=== PATIENT | male | born 1955 | race Caucasian/White ===

== ENCOUNTER → 2016-11-18 | Outpatient (CLI) | payer BC ==
--- NOTE | ~2016-11-18 | CR63 ---
[facility] A Service of [facility] & [facility] RADIOLOGY TEXT RESULTS PATIENT: CARTER ANDERS LOCATION: [facility] : 55 UNIT #: [id number] AGE: [address]: Alejandro Mullins MD SEX: M ORDER DR: [id number] [facility] [address] [place], [place] [address] [id number] O MR#: [id number] Acc #: [id number] NAME: CARTER ANDERS : 1955 SEX: M STUDY DATE/TIME: 11/18/2016 18:21 UNIT: [facility] ROOM: STUDY DESCRIPTION: CR Chest 2 View Attending Physician: Alejandro Mullins M.D. Referring Physician: Alejandro Mullins M.D. Ordering Physician: Alejandro Mullins M.D. Primary Care Physician: Abdulaziz Corbett M.D. MEDICAL IMAGING REPORT This report is preliminary unless electronic signature is present EXAM PA and lateral chest 11/18/2016 COMPARISON 10/24/2016. HISTORY Lung cancer. Postop thoracotomy 1 month ago. FINDINGS PA and lateral views of the chest are obtained. There is an ovoid density projected over the right upper lobe related to a suture line. The patient has some volume loss at the right base. Lungs otherwise clear. Heart size normal. CONCLUSION Postsurgical changes right upper lobe with a persistent ovoid density at the surgical site. The chest is otherwise clear. Dictated by... Hamzah Segura M.D. THIS IS AN ELECTRONICALLY VERIFIED REPORT Hamzah Segura M.D. at 11/22/2016 5:11 PM TERESA/stefan TD: 11/19/2016 06:53 JOB #: [id number] MEDICAL IMAGING REPORT Page 1 of 1 COPY
== END | disposition home or self-care (01) ==
LOC: CRAD 17:53
DX: C34.11 Malignant neoplasm of upper lobe, right bronchus or lung (principal); Z98.890 Other specified postprocedural states
CPT/HCPCS: 71020

== ENCOUNTER → 2016-12-30 | Outpatient (CLI) | payer BC ==
--- NOTE | ~2016-12-30 | CR63 ---
[facility] A Service of [facility] & [facility] / [facility] RADIOLOGY TEXT RESULTS PATIENT: CARTER ANDERS LOCATION: [facility] : 55 UNIT #: [id number] AGE: [address]: Alejandro Mullins MD SEX: M ORDER DR: [id number] [address] [id number] [facility] [place], [place] [address] [id number] O MR#: [id number] Acc #: [id number] NAME: CARTER ANDERS : 1955 SEX: M STUDY DATE/TIME: 12/30/2016 12:16 UNIT: [facility] ROOM: STUDY DESCRIPTION: CR Chest 2 View Attending Physician: Alejandro Mullins M.D. Referring Physician: Alejandro Mullins M.D. Ordering Physician: Alejandro Mullins M.D. Primary Care Physician: Abdulaziz Corbett M.D. MEDICAL IMAGING REPORT This report is preliminary unless electronic signature is present EXAM Two-view chest 12/30/2016 HISTORY 61-year-old male with history of lung cancer. Followup right upper lobectomy today. Essential hypertension. COPD. Former smoker. COMPARISON Chest 11/18/2016. FINDINGS Two views of the chest demonstrate stable postoperative changes in the right upper lobe. Lungs are otherwise clear. No pleural effusion or pneumothorax. Heart size and mediastinum are stable. Pulmonary vasculature unremarkable. IMPRESSION Stable postoperative changes in the right upper lobe. No other acute chest findings. Dictated by... Ramu Villagran M.D. THIS IS AN ELECTRONICALLY VERIFIED REPORT Ramu Villagran M.D. at 12/31/2016 12:15 PM JOSE/stefan TD: 12/31/2016 07:24 JOB #: [id number] MEDICAL IMAGING REPORT [facility] A Service of [facility] & [facility] / [facility] RADIOLOGY TEXT RESULTS PATIENT: CARTER ANDERS LOCATION: [facility] : 55 UNIT #: [id number] AGE: [address]: Alejandro Mullins MD SEX: M ORDER DR: Page 1 of 1 COPY
== END | disposition home or self-care (01) ==
LOC: CRAD 11:59
DX: Z08 Encounter for follow-up examination after completed treatment for malignant neoplasm (principal); Z90.2 Acquired absence of lung [part of]; Z85.118 Personal history of other malignant neoplasm of bronchus and lung
CPT/HCPCS: 71020